=== PATIENT | female | born 1980 | race Two or more races ===

== ENCOUNTER 2016-12-28 19:48 | Outpatient (CLI) | payer MEDICAID ==
[~2016-12-28] VITALS: Ht 167.6 cm; Wt 92.0 kg
== END 2016-12-28 21:55 | disposition home or self-care (01) ==
LOC: LDOP 19:48
PROVIDERS: ATTEND Student in an Organized Health Care Education/Training Program
DX: O09.522 Supervision of elderly multigravida, second trimester (principal); O42.912 Preterm premature rupture of membranes, unspecified as to length of time between rupture and onset of labor, second trimester; O99.282 Endocrine, nutritional and metabolic diseases complicating pregnancy, second trimester; E07.9 Disorder of thyroid, unspecified; Z3A.20 20 weeks gestation of pregnancy
CPT/HCPCS: 59025; 76815; 89060; 99201; G0463; Q0114